=== PATIENT | female | born 1995 | race Two or more races ===

== ENCOUNTER 2017-11-18 19:14 | Inpatient (IN) | payer OTHER ==
[2017-11-18] MEDS ORDERED: METHYLERGONOVINE 0.2 MG INJ IM (21:00)
[2017-11-18] MEDS ORDERED: OXYTOCIN 30 UNITS/LR 500 ML IV (21:00)
[2017-11-18] MEDS ORDERED: MISOPROSTOL 200 MCG TAB PR (21:00)
[2017-11-18] MEDS ORDERED: IBUPROFEN 600 MG TAB PO (21:00)
[2017-11-18] MEDS ORDERED: BUTORPHANOL 2 MG INJ IV (21:00)
[2017-11-18] MEDS ORDERED: CARBOPROST 250 MCG INJ IM (21:00)
[2017-11-18 21:26] LABS: ADD MAN DIFF? NO
[2017-11-18 21:29] LABS: ABNORMAL IP MESSAGE 1; HEMATOCRIT 38.1 % (37.0-47.0); MEAN CORPUSCULAR HEMOGLOBIN 29.1 pg (29.0-33.0); MEAN CORPUSCULAR HGB CONC 34.1 g/dl (32.0-37.0); MEAN CORPUSCULAR VOLUME 85.2 fl (82.0-101.0); MEAN PLATELET VOLUME 13.5 fl (7.4-10.4); PLATELET COUNT 144 10^3/UL (140-415); RED BLOOD COUNT 4.47 10^6/ul (4.20-5.40); RED CELL DISTRIBUTION WIDTH 13.2 % (11.5-14.5)
[2017-11-18 21:29] LABS: WHITE BLOOD COUNT 13.2 10^3/ul (4.8-10.8)
[2017-11-18 21:34] LABS: POSITIVE DIFF @See below
[2017-11-18] MEDS: LACTATED RINGER'S 500 ML IV ×4 (21:39→23:02)
[2017-11-18] MEDS: AMPICILLIN 2 GM/NS (PMX) 100 ML IV (21:39)
[2017-11-18 21:49] LABS: INR 1.03; PROTIME 13.6 Sec (11.9-14.9); PT RATIO 1.1
[2017-11-18 21:50] LABS: PARTIAL THROMBOPLASTIN TIME 29.2 Sec (25.0-35.0)
[2017-11-18] MEDS ORDERED: FENTAnyl 2MCG/ML-ROPIV 0.2% 100 ML (22:20)
[2017-11-18 22:22] LABS: HEPATITIS B SURFACE ANTIGEN NEGATIVE (NEGATIVE)
[2017-11-18] MEDS: LACTATED RINGER'S 1,000 ML IV ×2 (22:30→23:27)
[2017-11-18] MEDS ORDERED: EPHEDrine SULFATE 50 MG/5 ML SYG (22:52)
[2017-11-18] MEDS ORDERED: ONDANSETRON 4 MG INJ IV (23:30)
[2017-11-18] MEDS ORDERED: FENTAnyl 2MCG/ML-ROPIV 0.2% 100 ML BAG EPI (23:30)
[2017-11-18] MEDS ORDERED: NALOXONE (0.4 MG/ML) INJ IV (23:30)
[2017-11-18] MEDS ORDERED: TRIMETHOBENZAMIDE 100 MG/ML VIAL IM (23:30)
[2017-11-19 00:36] LABS: EOSINOPHILS % 0.5 % (0.0-7.0); LYMPHOCYTES % 21.2 % (15.0-51.0); MONOCYTES % 6.9 % (0.0-11.0); NEUTROPHILS % 69.7 % (39.0-77.0)
[2017-11-19 00:37] LABS: BASOPHILS % 0.4 % (0.0-2.0)
[2017-11-19 00:44] LABS: AMPHETAMINE/METHAMPHETAMINE Negative (NEGATIVE); BARBITURATES Negative (NEGATIVE); BENZODIAZEPINES Negative (NEGATIVE); CANNABINOIDS Negative (NEGATIVE); COCAINE Negative (NEGATIVE); OPIATES Negative (NEGATIVE)
[2017-11-19] MEDS: AMPICILLIN 1 GM/NS (PMX) 50 ML IV ×2 (01:07→05:19)
[2017-11-19] MEDS: OXYTOCIN 30 UNITS/LR 500 ML IV ×4 (02:22→12:15)
[2017-11-19] MEDS: LACTATED RINGER'S 1,000 ML IV (04:21)
[2017-11-19] MEDS: LIDOCAINE 1% (MPF) 30 ML INJ INJ (06:17)
[2017-11-19] MEDS ORDERED: METHYLERGONOVINE 0.2 MG INJ IM (06:30)
[2017-11-19] MEDS ORDERED: ONDANSETRON 4 MG INJ IV (06:30)
[2017-11-19] MEDS ORDERED: SENNA/DOCUSATE NA (8.6MG/50MG) TAB PO (06:30)
[2017-11-19] MEDS ORDERED: MISOPROSTOL 200 MCG TAB PR (06:30)
[2017-11-19] MEDS ORDERED: OXYCODONE/ASPIRIN (4.88/325) TAB PO (06:30)
[2017-11-19] MEDS ORDERED: CARBOPROST 250 MCG INJ IM (06:30)
[2017-11-19] MEDS ORDERED: OXYTOCIN 30 UNITS/LR 500 ML IV (06:30)
[2017-11-19] MEDS: DIPHENHYDRAMINE 50 MG INJ IV (06:33)
[2017-11-19] MEDS ORDERED: EPHEDrine SULFATE 50 MG/5 ML SYG (07:00)
[2017-11-19] MEDS: IBUPROFEN 600 MG TAB PO ×2 (08:32→12:12)
[2017-11-19] MEDS: BENZOCAINE 20% 56 ML SPRAY TOP (12:06)
[2017-11-19] MEDS: LANOLIN 7 GM TUBE TOP (12:11)
[2017-11-19] MEDS: WITCH HAZEL/GLYCERIN PAD PR (12:11)
[2017-11-19] MEDS: DIBUCAINE 1% 30 GM OINT PR (12:11)
[2017-11-19] MEDS: SENNA/DOCUSATE NA (8.6MG/50MG) TAB PO ×2 (12:12→21:22)
[2017-11-19] MEDS: OXYCODONE/ASPIRIN (4.88/325) TAB PO (16:56)
[2017-11-19 22:23] LABS: RAPID PLASMA REAGIN NONREACTIVE (NR)
[2017-11-20] MEDS: IBUPROFEN 600 MG TAB PO ×4 (06:42→18:00)
[2017-11-20] MEDS: SENNA/DOCUSATE NA (8.6MG/50MG) TAB PO ×2 (09:11→21:00)
[2017-11-20 10:56] LABS: ADD MAN DIFF? NO
[2017-11-20 11:07] LABS: WHITE BLOOD COUNT 10.8 10^3/ul (4.8-10.8)
[2017-11-20 11:07] LABS: BASOPHILS % 0.3 % (0.0-2.0); EOSINOPHILS # 0.1 10^3/ul (0.0-0.5); EOSINOPHILS % 1.2 % (0.0-7.0); HEMATOCRIT 36.4 % (37.0-47.0); HEMOGLOBIN 12.1 g/dl (12.0-16.0); LYMPHOCYTES # 2.2 10^3/ul (0.8-2.9); LYMPHOCYTES % 20.6 % (15.0-51.0); MEAN CORPUSCULAR HEMOGLOBIN 29.2 pg (29.0-33.0); MEAN CORPUSCULAR HGB CONC 33.2 g/dl (32.0-37.0); MEAN CORPUSCULAR VOLUME 87.7 fl (82.0-101.0); MONOCYTE # 0.9 10^3/ul (0.3-0.9); NEUTROPHIL # 7.5 10^3/ul (1.6-7.5); NEUTROPHILS % 69.2 % (39.0-77.0); PLATELET COUNT 150 10^3/UL (140-415); RED BLOOD COUNT 4.15 10^6/ul (4.20-5.40); RED CELL DISTRIBUTION WIDTH 13.8 % (11.5-14.5)
[2017-11-21] MEDS: IBUPROFEN 600 MG TAB PO ×3 (05:21→13:14)
[2017-11-21] MEDS: SENNA/DOCUSATE NA (8.6MG/50MG) TAB PO (09:27)
== END 2017-11-21 14:40 | disposition home or self-care (01) | DRG 775 ==
LOC: OBT 19:14 → PP1 11-19 09:13 → L-D 19:16 → OBT 20:35 → L-D 20:35
PROVIDERS: Obstetrics & Gynecology
PROC: 10E0XZZ Delivery of Products of Conception, External Approach (ICD-10-PCS; principal; 2017-11-18)
PROC: 0HQ9XZZ Repair Perineum Skin, External Approach (ICD-10-PCS; 2017-11-18)
DX: O48.0 Post-term pregnancy (principal); O69.81X0 Labor and delivery complicated by cord around neck, without compression, not applicable or unspecified; Z3A.40 40 weeks gestation of pregnancy; O70.0 First degree perineal laceration during delivery; O34.211 Maternal care for low transverse scar from previous cesarean delivery; Z37.0 Single live birth
CPT/HCPCS: 62319; 80307; 85025; 85610; 85730; 86592; 86900; 86901; 87340